=== PATIENT | male | born 1975 | race Caucasian/White ===

== ENCOUNTER → 2016-07-03 09:55 | Outpatient (CLI) | payer BC | END | disposition home or self-care (01) | LOC: D.CT 09:55 | DX: R91.1 Solitary pulmonary nodule (principal) ==

== ENCOUNTER → 2018-12-28 14:47 | Outpatient (CLI) | payer MEDICAID | END | disposition home or self-care (01) | LOC: D.HCCECHO 14:30 | PROVIDERS: ATTEND Internal Medicine Cardiovascular Disease | DX: R07.9 Chest pain, unspecified (principal); I10 Essential (primary) hypertension ==